=== PATIENT | female | born 1955 | race Caucasian/White ===

== ENCOUNTER 2017-02-17 22:06 | Emergency (ER) | payer OTHER ==
[~2017-02-17] VITALS: Ht 162.6 cm; Wt 47.6 kg
[~2017-02-17 22:06] MED LIST: CALCA500CH PO; DOCU100 PO; Prilosec Otc20 MG PO; TRAM50 PO; Veetids 500500 MG PO
[2017-02-18 00:09] LABS: BASOPHILS ABSOLUTE AUTO 0.01 K/mm3 (0.00-0.23); BASOPHILS PERCENT AUTO 0 % (0-2); EOSINOPHILS ABSOLUTE AUTO 0.02 K/mm3 (0.00-0.68); EOSINOPHILS PERCENT AUTO 0 % (0-6); Hematocrit 42.6 % (33.0-51.0); Hemoglobin 14.7 g/dL (11.5-16.0); IMMATURE GRAN ABSOLUTE AUTO 0.03 K/mm3 (0.00-0.10); IMMATURE GRAN PERCENT AUTO 0 % (0-1); LYMPHOCYTES ABSOLUTE AUTO 1.92 K/mm3 (0.84-5.20); LYMPHOCYTES PERCENT AUTO 16 % (21-46); MONOCYTES ABSOLUTE AUTO 0.53 K/mm3 (0.16-1.47); MONOCYTES PERCENT AUTO 5 % (4-13); Mean Corpuscular HGB 34.4 pg (26.0-34.0); Mean Corpuscular HGB Conc 34.5 g/dL (31.5-36.5); Mean Corpuscular Volume 100 fL (80-100); Mean Platelet Volume 10.8 fL (9.1-12.4); NEUTROPHILS ABSOLUTE AUTO 9.32 K/mm3 (1.96-9.15); NEUTROPHILS PERCENT AUTO 79 % (41-73); Platelet Count 234 K/mm3 (150-400); RDW Coefficient Variation 14.1 % (11.7-14.2); RDW Standard Deviation 50.8 fL (35.1-46.3); Red Blood Cell Count 4.27 M/mm3 (3.80-5.20); White Blood Cell Count 11.83 K/mm3 (4.00-11.30)
[2017-02-18 00:32] LABS: Alanine Aminotransfer (ALT/SGP 18 U/L (12-78); Albumin, Blood 4.4 g/dL (3.4-5.0); Albumin/Globulin Ratio 1.2 (0.8-1.8); Alk Phos 91 U/L (50-136); Anion Gap 12 mmol/L (6-16); Aspartate Aminotrans (AST/SGOT 12 U/L (12-37); Bilirubin, Total 0.6 mg/dL (0.1-1.0); Blood Urea Nitrogen 21 mg/dL (8-24); Bun/Creatinine Ratio 19.1 (12.0-20.0); CO2, Blood 26 mmol/L (21-32); Calcium, Blood 10.4 mg/dL (8.5-10.1); Chloride, Blood 98 mmol/L (98-108); Globulin, Blood 3.6 g/dL (2.2-4.0); Glomerular Filtration Rate 54 (60-); Glucose, Blood 125 mg/dL (70-99); Magnesium, Blood 1.8 mg/dL (1.6-2.4); Sodium, Blood 136 mmol/L (136-145); Troponin I <0.015 ng/mL (0.000-0.040)
== END 2017-02-18 03:51 | disposition home or self-care (01) ==
LOC: ER 22:06
PROVIDERS: Emergency Medicine
DX: R55 Syncope and collapse (principal); F41.9 Anxiety disorder, unspecified; E87.6 Hypokalemia; F17.200 Nicotine dependence, unspecified, uncomplicated; Z88.2 Allergy status to sulfonamides; Z90.710 Acquired absence of both cervix and uterus
CPT/HCPCS: 36415; 71046; 80053; 83735; 84443; 84484; 85025; 93005; 93010; 96360; 96361; 99283; J7030

== ENCOUNTER 2021-04-13 09:56 | Emergency (ER) | payer MEDICARE, OTHER ==
[~2021-04-13] VITALS: Ht 162.6 cm; Wt 61.2 kg
[2021-04-13 11:00] LABS: BASOPHILS ABSOLUTE AUTO 0.02 K/mm3 (0.00-0.23); BASOPHILS PERCENT AUTO 0 % (0-2); EOSINOPHILS ABSOLUTE AUTO 0.01 K/mm3 (0.00-0.68); EOSINOPHILS PERCENT AUTO 0 % (0-6); Hematocrit 42.7 % (33.0-51.0); Hemoglobin 14.4 g/dL (11.5-16.0); IMMATURE GRAN ABSOLUTE AUTO 0.02 K/mm3 (0.00-0.10); IMMATURE GRAN PERCENT AUTO 0 % (0-1); LYMPHOCYTES ABSOLUTE AUTO 1.34 K/mm3 (0.84-5.20); LYMPHOCYTES PERCENT AUTO 14 % (21-46); MONOCYTES ABSOLUTE AUTO 0.64 K/mm3 (0.16-1.47); MONOCYTES PERCENT AUTO 7 % (4-13); Mean Corpuscular HGB 32.9 pg (26.0-34.0); Mean Corpuscular HGB Conc 33.7 g/dL (31.5-36.5); Mean Corpuscular Volume 98 fL (80-100); NEUTROPHILS ABSOLUTE AUTO 7.59 K/mm3 (1.96-9.15); NEUTROPHILS PERCENT AUTO 79 % (41-73); Platelet Count 476 K/mm3 (150-400); RDW Coefficient Variation 13.1 % (11.7-14.2); RDW Standard Deviation 47.2 fL (35.1-46.3); Red Blood Cell Count 4.38 M/mm3 (3.80-5.20); White Blood Cell Count 9.62 K/mm3 (4.00-11.30)
[2021-04-13 11:29] LABS: Alanine Aminotransfer (ALT/SGP 86 U/L (12-78); Albumin, Blood 2.6 g/dL (3.4-5.0); Albumin/Globulin Ratio 0.4 (0.8-1.8); Alk Phos 175 U/L (50-136); Anion Gap 15 mmol/L (6-16); Aspartate Aminotrans (AST/SGOT 78 U/L (12-37); Bilirubin, Total 0.7 mg/dL (0.1-1.0); Blood Urea Nitrogen 32 mg/dL (8-24); Bun/Creatinine Ratio 39.2 (12.0-20.0); CO2, Blood 26 mmol/L (21-32); Calcium, Blood 10.7 mg/dL (8.5-10.1); Chloride, Blood 94 mmol/L (98-108); Creatinine, Blood 0.82 mg/dL (0.40-1.00); Globulin, Blood 5.8 g/dL (2.2-4.0); Glomerular Filtration Rate >60 (60-); Glucose, Blood 222 mg/dL (70-99); Potassium, Blood 3.3 mmol/L (3.5-5.5); Sodium, Blood 135 mmol/L (136-145); Total Protein, Blood 8.4 g/dL (6.4-8.2)
[2021-04-13] MEDS ORDERED: ONDA4ODT MM (12:58)
[2021-04-13] MEDS ORDERED: MULVITA PO (12:58)
[2021-04-13] MEDS ORDERED: POTA10T PO (13:00)
== END 2021-04-13 13:28 | disposition home or self-care (01) ==
LOC: ER 09:56
PROVIDERS: Physician Assistant
DX: E86.0 Dehydration (principal); R11.2 Nausea with vomiting, unspecified; F32.9 Major depressive disorder, single episode, unspecified; K21.9 Gastro-esophageal reflux disease without esophagitis; F17.210 Nicotine dependence, cigarettes, uncomplicated; Z88.2 Allergy status to sulfonamides
CPT/HCPCS: 36415; 73562-LT; 80053; 83690; 85025; 96374; 96375; 99284-25; C9113; J2405; J7030

== ENCOUNTER → 2022-03-01 | Outpatient (CLI) | payer MEDICARE, OTHER ==
[~2022-03-01] MED LIST changes: +MULVITA PO; +ONDA4ODT MM; +POTA10T PO
[2022-03-01 14:18] LABS: U Amphetamine Screen Not Detected; U Barbituate Screen Not Detected; U Benzodiazapine Screen DETECTED; U Buprenorphine Screen Not Detected; U Cannabinoids Screen DETECTED; U Cocaine Screen Not Detected; U Methadone Screen Not Detected; U Methamphetamine Screen Not Detected; U Opiates Screen Not Detected; U Oxycodone Screen Not Detected; U Phencyclidine Screen Not Detected; U Propoxyphene Screen Not Detected
== END | disposition home or self-care (01) ==
LOC: LAB SHORT 10:30
PROVIDERS: Physician Assistant
DX: Z51.81 Encounter for therapeutic drug level monitoring (principal); Z79.899 Other long term (current) drug therapy

== ENCOUNTER → 2022-03-30 | Outpatient (CLI) | payer MEDICARE, OTHER ==
[2022-03-30 17:49] LABS: BASOPHILS ABSOLUTE AUTO 0.05 K/mm3 (0.00-0.23); BASOPHILS PERCENT AUTO 1 % (0-2); EOSINOPHILS ABSOLUTE AUTO 0.15 K/mm3 (0.00-0.68); EOSINOPHILS PERCENT AUTO 2 % (0-6); Hemoglobin 14.5 g/dL (11.5-16.0); IMMATURE GRAN ABSOLUTE AUTO 0.02 K/mm3 (0.00-0.10); IMMATURE GRAN PERCENT AUTO 0 % (0-1); LYMPHOCYTES ABSOLUTE AUTO 3.53 K/mm3 (0.84-5.20); LYMPHOCYTES PERCENT AUTO 36 % (21-46); MONOCYTES ABSOLUTE AUTO 0.43 K/mm3 (0.16-1.47); MONOCYTES PERCENT AUTO 4 % (4-13); Mean Corpuscular HGB 32.7 pg (26.0-34.0); Mean Corpuscular HGB Conc 34.5 g/dL (31.5-36.5); Mean Corpuscular Volume 95 fL (80-100); Mean Platelet Volume 10.5 fL (9.1-12.4); NEUTROPHILS ABSOLUTE AUTO 5.61 K/mm3 (1.96-9.15); NEUTROPHILS PERCENT AUTO 57 % (41-73); Platelet Count 244 K/mm3 (150-400); RDW Coefficient Variation 12.5 % (11.7-14.2); RDW Standard Deviation 43.6 fL (35.1-46.3); Red Blood Cell Count 4.44 M/mm3 (3.80-5.20); White Blood Cell Count 9.79 K/mm3 (4.00-11.30)
== END | disposition home or self-care (01) ==
LOC: LAB 10:11 → LAB SHORT 10:11
PROVIDERS: Physician Assistant
DX: F32.9 Major depressive disorder, single episode, unspecified (principal); I10 Essential (primary) hypertension
CPT/HCPCS: 84443; 85025

== ENCOUNTER 2023-11-26 21:21 | Inpatient (IN) | payer OTHER ==
[~2023-11-26] VITALS: Ht 162.6 cm; Wt 57.8 kg
[2023-11-26 21:55] LABS: BASOPHILS ABSOLUTE AUTO 0.05 K/mm3 (0.00-0.23); BASOPHILS PERCENT AUTO 0 % (0-2); EOSINOPHILS ABSOLUTE AUTO 0.15 K/mm3 (0.00-0.68); EOSINOPHILS PERCENT AUTO 1 % (0-6); Hematocrit 39.4 % (33.0-51.0); Hemoglobin 13.3 g/dL (11.5-16.0); IMMATURE GRAN ABSOLUTE AUTO 0.04 K/mm3 (0.00-0.10); IMMATURE GRAN PERCENT AUTO 0 % (0-1); LYMPHOCYTES ABSOLUTE AUTO 4.52 K/mm3 (0.84-5.20); LYMPHOCYTES PERCENT AUTO 25 % (21-46); MONOCYTES ABSOLUTE AUTO 0.74 K/mm3 (0.16-1.47); MONOCYTES PERCENT AUTO 4 % (4-13); Mean Corpuscular HGB 31.1 pg (26.0-34.0); Mean Corpuscular HGB Conc 33.8 g/dL (31.5-36.5); Mean Corpuscular Volume 92 fL (80-100); Mean Platelet Volume 10.1 fL (9.1-12.4); NEUTROPHILS ABSOLUTE AUTO 12.28 K/mm3 (1.96-9.15); NEUTROPHILS PERCENT AUTO 69 % (41-73); Platelet Count 292 K/mm3 (150-400); RDW Coefficient Variation 13.1 % (11.7-14.2); RDW Standard Deviation 44.2 fL (35.1-46.3); Red Blood Cell Count 4.27 M/mm3 (3.80-5.20); White Blood Cell Count 17.78 K/mm3 (4.00-11.30)
[2023-11-26 22:11] LABS: Source, Urine Clean Catch
[2023-11-26 22:13] LABS: Bilirubin, Urine Neg (Neg); Blood, Urine 5+ (Neg); Glucose Qualitative, Urine Neg (Neg); Ketones, Urine Neg (Neg); Leukocyte Esterase, Urine 3+ (Neg); Nitrite, Urine Neg (Neg); Protein, Urine 2+ (Neg); Specific Gravity, Urine 1.025 (1.003-1.022); Urobilinogen, Urine 1+ (Normal)
[2023-11-26 22:16] LABS: Appearance, Urine Hazy (Clear); Color, Urine Yellow (P-Yellow)
[2023-11-26 22:19] LABS: Amorphous Light (0-Heavy); Bacteria Mod /hpf; Mucus Light (0-Heavy); Red Blood Cells, Urine TNTC /hpf (0-2); Squamous Epithelial Cells Not Seen /hpf (Few); White Blood Cells, Urine 25-50 /hpf (0-5)
[2023-11-26 22:20] LABS: Albumin, Blood 3.8 g/dL (3.4-5.0); Bilirubin, Total 0.4 mg/dL (0.1-1.0); Bun/Creatinine Ratio 16.8 (12.0-20.0); Calcium, Blood 9.5 mg/dL (8.5-10.1); Creatinine, Blood 1.01 mg/dL (0.40-1.00); Globulin, Blood 3.8 g/dL (2.2-4.0); Potassium, Blood 3.4 mmol/L (3.5-5.5); Total Protein, Blood 7.6 g/dL (6.4-8.2)
[2023-11-27] MEDS ORDERED: CefTRIAXone Sodium 1,000 MG in NS 100 ML IV ONE ×2 (04:00→08:30)
[2023-11-27] MEDS ORDERED: Morphine Sulfate 4 MG/1 ML Injection IV ONE (05:30)
[2023-11-27] MEDS ORDERED: HYDROmorphone HCl/Pf 1MG SYR IV PRN (08:20)
[2023-11-27] MEDS ORDERED: Acetaminophen 325 MG TABLET PO PRN (08:20)
[2023-11-27] MEDS ORDERED: FLU VACC TS2024-25(6MOS UP)/PF 45 MCG/0.5 ML SYRINGE IM SCH (08:20)
[2023-11-27] MEDS ORDERED: HYDROcodone 10-APAP 325 TAB PO PRN (08:20)
[2023-11-27] MEDS ORDERED: Bisacodyl 10 MG Supp PR PRN (08:20)
[2023-11-27] MEDS ORDERED: Magnesium Hydroxide Conc 10 ML UDC PO PRN (08:25)
[2023-11-27] MEDS ORDERED: Zolpidem Tartrate 5 MG Tab PO PRN (08:25)
[2023-11-27] MEDS ORDERED: NS 1,000 ML IV SCH (08:25)
[2023-11-27] MEDS ORDERED: Naloxone HCl 0.4MG / ML 1ML Vial IV PRN (08:25)
[2023-11-27] MEDS ORDERED: Ondansetron 4 MG TAB PO PRN (08:25)
[2023-11-27] MEDS ORDERED: Potassium Chloride 20 MEQ TabCR PO ONE (08:35)
[2023-11-27] MEDS ORDERED: Docusate Sodium 100 MG Cap PO SCH (09:00)
[2023-11-27] MEDS ORDERED: REMERON30 M9 PO (13:29)
[2023-11-27] MEDS ORDERED: ALPRAZOLAM0.5 M1 PO (13:29)
[2023-11-27] MEDS ORDERED: PROBIOTIC1 EA13 PO (13:30)
[2023-11-27 13:32] VITALS: BP 139/94
--- NOTE | 2023-11-27 17:40 | NUR ---
SHIFT SUMMARY; PATIENT IS ER ADMIT THIS AFTERNOON. PER REPORT SHE HAD RIGHT FLANK PAIN AT HOME AND DECIDIED TO COME TO ER AFTER TAKING GERD MEDICATIONS AND PAIN DID NOT RESOLVE. CT SCAN SHOWED 4MM PARTIALLY OBSTRUCTIVE KIDNEY STONE. PATIENT RECEIVING NORCO FOR PAIN WITH GOOD RESULTS. SHE HAS NS A5 75ML/HR X 1 BAG. SHE IS AO X 4 ON ARRIVAL. USES CALL LIGHT APPROPRIATELY. NEW IV START ER IV INFILTRATED. VITAL SIGNS ARE STABLE SHE IS NOT FEBRILE. HER WBC ARE ELEVATED AND URIN POS FOR UTI. WILL REMAIN AVAILABLE FOR THIS PATIENT FOR ANY WANTS OR NEEDS THAT COME UP PRIOR TO REPORT AND HAND OFF TO NOC SHIFT RN.
[2023-11-27 21:14] VITALS: BP 177/97
[2023-11-27 21:15] VITALS: BP 158/86
[2023-11-28 02:29] VITALS: BP 169/84
[2023-11-28] MEDS ORDERED: NS 250 ML IV PRN (05:05)
[2023-11-28 05:39] LABS: BASOPHILS ABSOLUTE AUTO 0.03 K/mm3 (0.00-0.23); BASOPHILS PERCENT AUTO 0 % (0-2); EOSINOPHILS ABSOLUTE AUTO 0.23 K/mm3 (0.00-0.68); EOSINOPHILS PERCENT AUTO 2 % (0-6); IMMATURE GRAN ABSOLUTE AUTO 0.02 K/mm3 (0.00-0.10); IMMATURE GRAN PERCENT AUTO 0 % (0-1); LYMPHOCYTES ABSOLUTE AUTO 3.67 K/mm3 (0.84-5.20); LYMPHOCYTES PERCENT AUTO 39 % (21-46); MONOCYTES ABSOLUTE AUTO 0.55 K/mm3 (0.16-1.47); MONOCYTES PERCENT AUTO 6 % (4-13); Mean Corpuscular HGB 31.3 pg (26.0-34.0); Mean Corpuscular HGB Conc 33.3 g/dL (31.5-36.5); Mean Corpuscular Volume 94 fL (80-100); Mean Platelet Volume 10.4 fL (9.1-12.4); NEUTROPHILS ABSOLUTE AUTO 4.96 K/mm3 (1.96-9.15); NEUTROPHILS PERCENT AUTO 53 % (41-73); Platelet Count 276 K/mm3 (150-400); RDW Standard Deviation 44.5 fL (35.1-46.3); Red Blood Cell Count 3.83 M/mm3 (3.80-5.20); White Blood Cell Count 9.46 K/mm3 (4.00-11.30)
[2023-11-28 05:51] LABS: Albumin, Blood 3.2 g/dL (3.4-5.0); Albumin/Globulin Ratio 0.9 (0.8-1.8); Bilirubin, Total 0.5 mg/dL (0.1-1.0); Bun/Creatinine Ratio 16.5 (12.0-20.0); Calcium, Blood 8.9 mg/dL (8.5-10.1); Creatinine, Blood 0.91 mg/dL (0.40-1.00); Globulin, Blood 3.4 g/dL (2.2-4.0); Potassium, Blood 3.8 mmol/L (3.5-5.5); Total Protein, Blood 6.6 g/dL (6.4-8.2)
[2023-11-28] MEDS ORDERED: CefTRIAXone Sodium 2,000 MG in NS 100 ML IV SCH (06:00)
--- NOTE | 2023-11-28 06:49 | NUR ---
SHIFT SUMMARY PT IS A&OX4, PLEASANT AND COOPERATIVE WITH CARES. VSS ON RA. C/O RIGHT FLANK PAIN THAT MOVES TO THE FRONT OF HER ABD. PRN 10MG PO HYDROCODONE GIVEN WITH GOOD RESULTS. PT TOLERATING A REGULAR DIET, BUT HAS POOR APPETITE. PT IS INDEPENDENT IN ROOM/BR. SHE IS STRAINING HER URINE, HAS SEEN SOME VERY SMALL BLACK SPECKS IN THE SCREEN. THIS RN HAS NOT VISUALIZED THESE. NO BM THIS SHIFT, PT FEELS CONSTIPATED, HYPOACTIVE BS. PRN BOWEL CARE GIVEN WITH HS MEDICATIONS. BED IN LOWEST POSTION, CALL LIGHT WITHIN REACH.
[2023-11-28 07:45] VITALS: BP 175/74
[2023-11-28] MEDS ORDERED: Heparin Sodium,Porcine 5,000 UNIT/0.5 ML SDV SC SCH (09:00)
[2023-11-28] MEDS ORDERED: Furosemide 10 MG / ML 2ML Vial IV SCH (09:00)
[2023-11-28] MEDS ORDERED: Polyethylene Glycol 3350 17 gm PO PRN (14:55)
[2023-11-28 15:13] VITALS: BP 160/87
--- NOTE | 2023-11-28 16:26 | NUR ---
SHIFT SUMMARY; PATIENT COMPLAINS OF ABDOMEN FEELING MORE DISTENDED TODAY AND LATE AFTERNOON XRAY OF SAME IS ORDERED AND COMPLETED. WAITING FOR RESULTS AT THIS TIME. PATIENT IS MEDICATED X 3 FOR PAIN TODAY WITH GOOD RESULTS. SHE HAS GOOD APPETITE THIS AFTERNOON. SHE IS INDPENDANT TO BATHROOM. STRAINING URING FOR KIDNEY STONES. VITAL SIGNS ARE WNL AND STABLE. SHE IS AO X 4. LUNGS HAVE WHEEZES NOTED THROUGHOUT. MIGUELErikaYVETTE SAYS SHE IS A DAILY [employer]. WILL CONTINUE TO MONITOR THIS PATIENT CLOSELY UNTIL REPORT AND HAND OFF TO NOC SHIFT RN.
[2023-11-28 19:15] VITALS: BP 147/92
[2023-11-28] MEDS ORDERED: Docusate Sodium/Senna 1 Tab PO SCH (21:00)
[2023-11-29 03:01] VITALS: BP 145/93
[2023-11-29 05:03] LABS: Hematocrit 37.5 % (33.0-51.0); Hemoglobin 12.7 g/dL (11.5-16.0); Mean Corpuscular HGB 30.9 pg (26.0-34.0); Mean Corpuscular HGB Conc 33.9 g/dL (31.5-36.5); Mean Corpuscular Volume 91 fL (80-100); Platelet Count 277 K/mm3 (150-400); RDW Coefficient Variation 12.5 % (11.7-14.2); RDW Standard Deviation 41.6 fL (35.1-46.3); Red Blood Cell Count 4.11 M/mm3 (3.80-5.20); White Blood Cell Count 7.18 K/mm3 (4.00-11.30)
--- NOTE | 2023-11-29 05:25 | NUR ---
SHIFT SUMMARY PT IS A&OX4, PLEASANT AND COOPERATIVE WITH CARES. VSS ON RA. C/O RIGHT FLANK PAIN THAT MOVES TO THE FRONT OF HER ABD. PRN 10MG PO HYDROCODONE GIVEN WITH GOOD RESULTS. PT TOLERATING A REGULAR DIET, BUT HAS POOR APPETITE. PT ALSO HAS SOME NAUSEA WITH HER PO PAIN MEDICATION, PRN ZOFRAN GIVEN. PT IS INDEPENDENT IN ROOM/BR. SHE IS STRAINING HER URINE, HAS SEEN SOME VERY SMALL BLACK SPECKS IN THE SCREEN. THIS RN HAS NOT VISUALIZED THESE. NO BM THIS SHIFT, PT FEELS CONSTIPATED, HYPOACTIVE BS. BOWEL CARE GIVEN WITH HS MEDICATIONS. BED IN LOWEST POSTION, CALL LIGHT WITHIN REACH.
[2023-11-29 05:26] LABS: Albumin, Blood 3.4 g/dL (3.4-5.0); Anion Gap 12 mmol/L (3-11); Blood Urea Nitrogen 14 mg/dL (8-24); Bun/Creatinine Ratio 16.2 (12.0-20.0); CO2, Blood 26 mmol/L (21-32); Calcium, Blood 9.3 mg/dL (8.5-10.1); Chloride, Blood 103 mmol/L (98-108); Creatinine, Blood 0.86 mg/dL (0.40-1.00); Glomerular Filtration Rate 74 (60-); Glucose, Blood 107 mg/dL (70-99); Phosphorus, Blood 3.4 mg/dL (2.5-4.9); Potassium, Blood 3.6 mmol/L (3.5-5.5); Sodium, Blood 137 mmol/L (136-145)
[2023-11-29 07:33] VITALS: BP 142/71
[2023-11-29] MEDS ORDERED: DOCUZEN 8.6-501 EACH PO (12:28)
[2023-11-29] MEDS ORDERED: MIRALAX17 GM PO (12:28)
--- NOTE | 2023-11-29 14:36 | NUR ---
PT AWAKE DURING SHIFT REPORT. PT WANTING TO GO HOME. NO C/O PAIN. DR ROGERS IN TO SEE PT AND DISCUSS PLAN OF CARE. D/C ORDERS PLACED. PT CALLED BROTHER FOR TRANSPORT HOME. D/C INSTRUCTIONS REVIEWED WITH PT. NO NEW MEDICATIONS ADDED TODAY. PT ASSISTED OUT TO BROTHERS PICKUP VIA W/C. ALL BELONGING WENT WITH PT.
== END 2023-11-29 13:27 | disposition home or self-care (01) | DRG 690 ==
LOC: ER 21:21 → MEDS 11-27 08:17
PROVIDERS: Internal Medicine; Physician Assistant; ADMIT Hospitalist
DX: N13.6 Pyonephrosis (principal); N20.0 Calculus of kidney; K21.9 Gastro-esophageal reflux disease without esophagitis; F17.210 Nicotine dependence, cigarettes, uncomplicated; Z87.19 Personal history of other diseases of the digestive system; Z88.2 Allergy status to sulfonamides; Z90.49 Acquired absence of other specified parts of digestive tract
CPT/HCPCS: 36415; 74018; 74177; 80053; 80069; 81001; 83690; 83735; 85025; 85027; 87086; 94760; 96365; 96375; 99285-25; A9270; J0696; J1170; J1644; J1940; J2270; J7030; J7050; Q9967

== ENCOUNTER → 2023-12-15 | Outpatient (CLI) | payer OTHER ==
[~2023-12-15] MED LIST changes: +ALPRAZOLAM0.5 M1 PO; +DOCUZEN 8.6-501 EACH PO; +MIRALAX17 GM PO; +PROBIOTIC1 EA13 PO; +REMERON30 M9 PO
== END | disposition home or self-care (01) ==
LOC: LAB SHORT 15:05 → LAB 15:05
DX: R30.0 Dysuria (principal)
CPT/HCPCS: 87086